=== PATIENT | female | born 1980 | race Two or more races ===

== ENCOUNTER 2024-11-02 20:25 | Emergency (ER) | payer OTHER ==
[~2024-11-02] VITALS: Ht 175.3 cm; Wt 83.9 kg
[2024-11-02] MEDS ORDERED: CRESTOR40 MG PO (21:39)
== END 2024-11-02 23:35 | disposition home or self-care (01) ==
LOC: ER 21:45
DX: M94.0 Chondrocostal junction syndrome [Tietze] (principal)